=== PATIENT | female | born 1935 | race American Indian/Alaskan Native ===

== ENCOUNTER 2017-04-02 07:54 | Day surgery (SDC) | payer MEDICARE ==
[~2017-04-02 07:54] MED LIST: ANCEF/STERILE WATER 2 GM/20 ML 2 GM/20 ML SYRINGE IV NR; NACL 0.9% 1000 ML 1,000 ML IV SCH
[2017-04-02 09:37] LABS: Basophils % (Auto) 0.1 % (0.0-1.8); Hemoglobin 11.1 gm/dl (10.1-14.3); Lymphocytes % (Auto) 11.3 % (13.4-35.0); Mean Corpuscular HGB Conc 34 % (30-34); Mean Corpuscular Hemoglobin 30 pg (28-32); Mean Corpuscular Volume 89 fl (79-97); Monocytes # (Auto) 0.6 K/mm3 (0.0-0.8); Monocytes % (Auto) 6.8 % (0.0-7.3); Platelet Count 264 K/mm3 (140-440); Red Blood Count 3.72 M/mm3 (3.65-5.03); Red Cell Distribution Width 13.6 % (13.2-15.2)
[2017-04-02 09:49] LABS: Calcium 9.2 mg/dL (8.4-10.2)
--- NOTE | 2017-04-02 10:25 | Anesthesia Consultation ---
Anesthesia Consult and Med Hx Date of service: 04/02/17 - Airway Anesthetic Teeth Evaluation: Good ROM Head & Neck: Adequate Mental/Hyoid Distance: Adequate Mallampati Class: Class I Intubation Access Assessment: Probably Good - Pulmonary Exam CTA: Yes - Cardiac Exam Cardiac Exam: RRR - Pre-Operative Health Status ASA Pre-Surgery Classification: ASA3 Proposed Anesthetic Plan: General - Endocrine Hx Insulin Dependent Diabetes: Yes - Other Systems Hx Cancer: No - Additional Comments Anesthesia Medical History Comments: Pt states no previous anesthesia. Denies family hx of complications. Hx glaucoma, blurred vision in left eye.
--- NOTE | 2017-04-02 10:26 | Anesthesia Day of Surgery ---
Anesthesia Day of Surgery - Day of Surgery Patient Examined: Yes Patient H&P Reviewed: Yes Patient is NPO: Yes
[2017-04-02] MEDS ORDERED: DIPRIVAN 10 MG/ML IV ONE (10:53)
[2017-04-02] MEDS ORDERED: SUBLIMAZE ONE (10:53)
[2017-04-02] MEDS ORDERED: XYLOCAINE 1% 20 mL ONE (11:02)
[2017-04-02] MEDS ORDERED: MARCAINE 0.5% 0 ML INFILTRATI ONE (11:03)
[2017-04-02] MEDS ORDERED: SODIUM BICARBONATE ONE (11:03)
[2017-04-02] MEDS ORDERED: ePHEDrine SULFATE ONE (11:32)
[2017-04-02] MEDS ORDERED: XYLOCAINE MPF 2% ONE (11:38)
[2017-04-02] MEDS ORDERED: ZOFRAN ONE (11:38)
[2017-04-02] MEDS ORDERED: NEO SYNEPHRINE/NS Syringe(OR USE) IV ONE (11:45)
[2017-04-02] MEDS ORDERED: NACL 0.9% IR ONE (11:58)
--- NOTE | 2017-04-02 13:19 | Operative Report ---
Operative Report Operative Report: Operative note: Date: 04/02/2017 Preoperative diagnosis: Temporal arteritis Postoperative diagnosis: Same. Operation: Bilateral temporal artery biopsy Surgeon: Paola Gibbs. Asst.: Anesthesia: Gen. EBL: Less than 5 mL Findings: Normal appearing temporal arteries Indications: This is a 82-year-old -[place] female with suspected temporal arteritis on the left side. She was started on steroids and advised to have temporal artery biopsy. Operative details: Patient brought to operating room prepped and draped in sterile fashion. Inintially, she was placed on the right side with his left side prepped and shaved. Left temporal artery was marked with marking pen and incision was created with 15 blade over the marked temporal artery area and carried down with electrocautery. Temporal artery and frontal branch was identified and dissected. Branches identified and ligated. Proximal and distal ends of temporal artery were ligated with 3-0 silk and specimen was handed off the field. The wound was irrigated, hemostasis achieved. We will was closed in 2 layers with interrupted 3-0 Vicryl and subcuticular 4-0 Monocryl. Wound closure applied Contralateral side temporal area was prepped and draped in sterile fashion. Right temporal artery was marked with marking pen and incision was created with 15 blade over the marked temporal artery area and carried down with electrocautery. Temporal artery and frontal branch was identified and dissected. Branches identified and ligated. Proximal and distal ends of temporal artery were ligated with 3-0 silk and specimen was handed off the field. The wound was irrigated, hemostasis achieved. We will was closed in 2 layers with interrupted 3-0 Vicryl and subcuticular 4-0 Monocryl. Wound closure applied
--- NOTE | 2017-04-02 13:24 | Short Stay Summary ---
Short Stay Documentation Date of service: 04/02/17 - History H&P: obtained from office - Allergies and Medications Current Medications: Allergies No Known Allergies Allergy (Unverified 04/02/17 08:46) Home Medications Medication Instructions Recorded Confirmed Last Taken Type Insulin Glargine,Hum.rec.anlog 10 units SUB-Q HS 04/02/17 04/02/17 04/01/17 History [Lantus Solostar] 5 Linagliptin [Tradjenta] 5 mg PO DAILY 04/02/17 04/02/17 04/01/17 History predniSONE [Deltasone] 20 mg PO DAILY 04/02/17 04/02/17 04/01/17 History Active Medications Cefazolin Sodium (Ancef/Sterile Water 2 Gm/20 Ml) 2 gm in 20 mls @ 80 mls/hr IV PREOP NR PRN Reason: Protocol Stop: 04/02/17 23:59 Sodium Chloride (Nacl 0.9% 1000 Ml) 1,000 mls @ 42 mls/hr IV DIRECT GREGORIO Last Admin: 04/02/17 09:25 Dose: 42 mls/hr - Brief post op/procedure progress note Date of procedure: 04/02/17 Pre-op diagnosis: temporal arteritis Post-op diagnosis: same Procedure: Bilateral temporal artery biopsies Anesthesia: GETA Findings: Normal-looking temporal arteries Surgeon: MARIA ALEJANDRA DONNELLY Estimated blood loss: minimal Pathology: list (temporal arteries) Specimen disposition: to lab Condition: stable - Disposition Condition at discharge: Good Disposition: DC-01 TO HOME OR SELFCARE Short Stay Discharge Plan Diet: regular Follow up with: PRUDENCE PENN MD [Primary Care Provider] - 7 Days MARIA ALEJANDRA DONNELLY DO [Staff Physician] - 14 Days Prescriptions: Acetaminophen/Codeine [Tylenol /Codeine # 3 tab] 1 tab PO Q6H PRN #14 tab PRN Reason: Pain, Moderate (4-6)
[2017-04-02] MEDS: DILAUDID IV PRN ×2 (13:45→13:55)
[2017-04-02] MEDS ORDERED: DILAUDID ONE (13:46)
[2017-04-02] MEDS ORDERED: TYLENOL #3 PO PRN (14:03)
[2017-04-02] MEDS ORDERED: NORMODYNE IV ONE (14:16)
[2017-04-02] MEDS ORDERED: NORMODYNE IV PRN (14:30)
[2017-04-02 15:45] VITALS: BP 139/73
== END 2017-04-02 16:24 | disposition home or self-care (01) ==
LOC: OR 07:54
PROVIDERS: ATTEND Surgery Vascular Surgery
DX: I70.8 Atherosclerosis of other arteries (principal); H53.8 Other visual disturbances; I25.10 Atherosclerotic heart disease of native coronary artery without angina pectoris; E10.9 Type 1 diabetes mellitus without complications; Z79.4 Long term (current) use of insulin; Z79.899 Other long term (current) drug therapy; Z98.890 Other specified postprocedural states
CPT/HCPCS: 36415; 37609; 80048; 82962; 85025; 88305; 88313; J0690; J1170; J2370; J2405; J2704; J3010; J7030; J1815